=== PATIENT | male | born 1985 | race Caucasian/White ===

== ENCOUNTER 2021-01-21 10:05 | Emergency (ER) | payer SELFPAY ==
[~2021-01-21] VITALS: Ht 170.2 cm; Wt 91.6 kg
[~2021-01-21 10:05] MED LIST: KETO10 PO; Percocet 10-321 EACH PO; Valium10 MG PO
[2021-01-21] MEDS ORDERED: LAMICTAL25 M2 PO (10:23)
[2021-01-21] MEDS ORDERED: Cephalexin500 MG PO (12:00)
== END 2021-01-21 12:07 | disposition home or self-care (01) ==
LOC: ER 10:05
DX: S81.811A Laceration without foreign body, right lower leg, initial encounter (principal); Z87.891 Personal history of nicotine dependence; W29.3XXA Contact with powered garden and outdoor hand tools and machinery, initial encounter
CPT/HCPCS: 12002; 99282-25; A9270

== ENCOUNTER 2021-01-26 12:26 | Emergency (ER) | payer SELFPAY ==
[~2021-01-26] VITALS: Ht 170.2 cm; Wt 91.6 kg
[~2021-01-26 12:26] MED LIST changes: +Cephalexin500 MG PO; +LAMICTAL25 M2 PO
== END 2021-01-26 15:05 | disposition home or self-care (01) ==
LOC: ER 12:26
DX: S01.01XA Laceration without foreign body of scalp, initial encounter (principal); Z87.891 Personal history of nicotine dependence; W19.XXXA Unspecified fall, initial encounter
CPT/HCPCS: 12002; 99282-25